=== PATIENT | female | born 1960 | race Caucasian/White ===

== ENCOUNTER 2021-10-04 13:22 | Inpatient (IN) | payer MEDICARE, OTHER ==
[~2021-10-04] VITALS: Ht 165.1 cm; Wt 82.0 kg
[2021-10-04 15:31] LABS: Albumin 3.1 g/dL (3.4-5.0); Calcium 8.6 mg/dL (8.5-10.1); Magnesium 2.1 mg/dL (1.6-2.6); Potassium 4.1 mmol/L (3.5-5.1)
[2021-10-04 15:33] LABS: Basophils # (auto) 0.1 10 ^3/uL (0-0.2); Basophils % (auto) 0.9 % (0.0-2.0); Eosinophils # (auto) 0.1 10 ^3/uL (0-0.8); Eosinophils % (auto) 0.7 % (0.0-7.0); Hematocrit 34.4 % (36.0-46.0); Lymphocytes # (auto) 1.6 10 ^3/uL (0.4-5.4); Lymphocytes % (auto) 16.6 % (10.0-50.0); Mean Corpuscular Hemoglobin 30.6 pg (28.0-32.0); Mean Corpuscular Hgb Conc. 34.8 g/dL (32.0-36.0); Monocytes # (auto) 0.4 10 ^3/uL (0-1.3); Monocytes % (auto) 4.4 % (0.0-12.0); Neutrophils # (auto) 7.5 10 ^3/uL (1.6-8.6); Neutrophils % (auto) 77.4 % (37.0-80.0); Red Blood Cells 3.91 10^6/uL (4.0-5.20); Red Cell Distribution Width 15.2 % (11.8-14.3); White Blood Cell 9.7 10^3/uL (4.4-10.8)
[2021-10-04 15:39] LABS: BUN/Creatinine Ratio 19.1; Bilirubin, Total 0.6 mg/dL (0.2-1.0); Total Protein 7.1 g/dL (6.4-8.2)
[2021-10-04] MEDS ORDERED: ENOXAPARIN SOD 100 MG/1 ML SYRINGE SC ONE (16:00)
[2021-10-04] MEDS ORDERED: NITROGLYCERIN 0.4 MG SL TAB SL PRN (16:00)
[2021-10-04] MEDS ORDERED: MORPHINE SULFATE INJECTION 2 MG/ML SYRG IV PRN ×2 (16:00→21:00)
[2021-10-04] MEDS ORDERED: FUROSEMIDE 40 MG/4 ML VIAL IV ONE (16:00)
[2021-10-04] MEDS ORDERED: IOHEXOL 350 MG/ML 100ML IJ ONE (16:22)
[2021-10-04 18:07] LABS: Urine Bacteria FEW /hpf (None Seen); Urine Blood Negative /uL (Negative); Urine Mucus FEW (None Seen); Urine Specific Gravity 1.019 (1.001-1.035); Urine WBC 10 /hpf (0 - 5)
[2021-10-04] MEDS ORDERED: FLEC100T PO (19:04)
[2021-10-04] MEDS ORDERED: SERT50TA19 PO (19:04)
[2021-10-04] MEDS ORDERED: HYDR-4798 PO (19:04)
[2021-10-04] MEDS ORDERED: METO1TAB9 PO (19:04)
[2021-10-04] MEDS ORDERED: RANO500T PO (19:04)
[2021-10-04] MEDS ORDERED: DESO1TAB17 PO (19:04)
[2021-10-04] MEDS ORDERED: APIX5TAB PO (19:04)
[2021-10-04] MEDS ORDERED: ATOR10TA52 PO (19:04)
[2021-10-04] MEDS ORDERED: LORazepam 0.5 MG TAB PO PRN (20:45)
[2021-10-04] MEDS ORDERED: ALPRAZolam 0.5 MG TAB PO PRN (20:45)
[2021-10-04] MEDS ORDERED: IPRATROPIUM BROM 0.5 MG/2.5ML INH SOL ONE (20:59)
[2021-10-04] MEDS ORDERED: PANTOPRAZOLE 40 MG/10 ML VIAL INJ IV ONE (21:00)
[2021-10-04] MEDS ORDERED: DOCUSATE SOD 100 MG CAP PO PRN (21:00)
[2021-10-04] MEDS ORDERED: HYDROcodone-ACET 5/325MG TAB PO ONE (21:00)
[2021-10-04] MEDS ORDERED: BUMETANIDE 2.5mg/10ml (0.25 mg/ml) INJ IV ONE (21:00)
[2021-10-04] MEDS ORDERED: hydrALAZINE HCL 20 MG/ML VL IV PRN (21:00)
[2021-10-04] MEDS ORDERED: METOPROLOL SUCCINATE XL 50 MG TAB PO ONE (21:00)
[2021-10-04] MEDS ORDERED: SUCRALFATE 1 GM/10 ML ORAL SUSP PO ONE (21:00)
[2021-10-04] MEDS ORDERED: METOCLOPRAMIDE HCL 5MG/ml INJ 2ml VIAL IV PRN (21:00)
[2021-10-04] MEDS ORDERED: MULTIPLE VITAMINS W/ MINERALS TAB PO ONE (21:00)
[2021-10-04] MEDS ORDERED: LACTULOSE 20Gm/30ML SOLN PO PRN (21:00)
[2021-10-04] MEDS ORDERED: IPRATROPIUM BROM 0.5 MG/2.5ML INH SOL NEB ONE ×2 (21:00)
[2021-10-04 21:25] LABS: Magnesium 2.2 mg/dL (1.6-2.6); Phosphorus 3.1 mg/dL (2.5-4.90)
[2021-10-04] MEDS ORDERED: cefTRIAXone 1GM/50ML D5W 50 ML IV ONE (21:30)
[2021-10-04] MEDS ORDERED: ISOSORBIDE MONONITRATE ER 60 MG TAB PO ONE (21:45)
[2021-10-04] MEDS: IPRATROPIUM BROM 0.5 MG/2.5ML INH SOL NEB SCH (22:00)
[2021-10-04] MEDS ORDERED: DOXYCYCLINE 100MG/250ML 250 ML IV ONE (22:30)
[2021-10-04] MEDS: ACETAMINOPHEN 325 MG TAB PO PRN (22:36)
[2021-10-04] MEDS: RANOLAZINE ER 500 MG TAB PO SCH (22:37)
[2021-10-04] MEDS: FLECAINIDE ACETATE 50 MG TAB PO SCH (22:38)
[2021-10-04] MEDS: APIXABAN 5 MG TAB PO SCH (22:39)
[2021-10-04] MEDS: ATORVASTATIN 20 MG TAB PO SCH (22:39)
[2021-10-04] MEDS: SUCRALFATE 1 GM/10 ML ORAL SUSP PO SCH (22:45)
[2021-10-04 23:36] VITALS: BP 146/65
[2021-10-05 01:17] VITALS: BP 146/65
[2021-10-05] MEDS: IPRATROPIUM BROM 0.5 MG/2.5ML INH SOL NEB SCH ×6 (02:00→22:00)
[2021-10-05 02:23] LABS: INR 1.18 (0.9-1.15); Partial Thromboplastin Time 33.6 sec (23.6-33.0)
[2021-10-05 05:00] VITALS: BP 91/54
[2021-10-05] MEDS: BUMETANIDE 2.5mg/10ml (0.25 mg/ml) INJ IV SCH ×2 (05:48→17:30)
[2021-10-05] MEDS: SUCRALFATE 1 GM/10 ML ORAL SUSP PO SCH ×4 (06:28→21:45)
[2021-10-05 07:01] LABS: Basophils # (auto) 0 10 ^3/uL (0-0.2); Basophils % (auto) 0.2 % (0.0-2.0); Eosinophils # (auto) 0.1 10 ^3/uL (0-0.8); Eosinophils % (auto) 0.7 % (0.0-7.0); Hematocrit 32.8 % (36.0-46.0); Hemoglobin 11.2 g/dL (12.2-16.2); Lymphocytes # (auto) 2.1 10 ^3/uL (0.4-5.4); Lymphocytes % (auto) 25.5 % (10.0-50.0); Mean Corpuscular Hemoglobin 30.4 pg (28.0-32.0); Mean Corpuscular Hgb Conc. 34.1 g/dL (32.0-36.0); Mean Corpuscular Volume 89.1 fL (80.0-100.0); Monocytes # (auto) 0.6 10 ^3/uL (0-1.3); Monocytes % (auto) 7.1 % (0.0-12.0); Neutrophils # (auto) 5.5 10 ^3/uL (1.6-8.6); Neutrophils % (auto) 66.5 % (37.0-80.0); Red Blood Cells 3.68 10^6/uL (4.0-5.20); White Blood Cell 8.2 10^3/uL (4.4-10.8)
[2021-10-05 07:38] LABS: Potassium 3.3 mmol/L (3.5-5.1)
[2021-10-05 07:46] LABS: INR 1.16 (0.9-1.15); Partial Thromboplastin Time 34.8 sec (23.6-33.0)
[2021-10-05 08:13] LABS: Albumin 2.9 g/dL (3.4-5.0); BUN/Creatinine Ratio 18.1; Bilirubin, Total 0.6 mg/dL (0.2-1.0); CRP High Sensitivity 9.82 mg/dL (< 0.3); Calcium 8.4 mg/dL (8.5-10.1); Magnesium 2.3 mg/dL (1.6-2.6); Phosphorus 3.9 mg/dL (2.5-4.90); Total Protein 6.9 g/dL (6.4-8.2)
[2021-10-05 09:00] VITALS: BP 126/48
[2021-10-05] MEDS: ASPirin 81 mg TAB PO SCH (09:28)
[2021-10-05] MEDS: PANTOPRAZOLE 40 MG/10 ML VIAL INJ IV SCH (09:28)
[2021-10-05] MEDS: APIXABAN 5 MG TAB PO SCH ×2 (09:28→21:46)
[2021-10-05] MEDS: cefTRIAXone 1GM/50ML D5W 50 ML IV SCH (09:28)
[2021-10-05] MEDS: MULTIPLE VITAMINS W/ MINERALS TAB PO SCH (09:29)
[2021-10-05] MEDS: METOPROLOL SUCCINATE XL 50 MG TAB PO SCH (09:29)
[2021-10-05] MEDS: RANOLAZINE ER 500 MG TAB PO SCH ×2 (09:29→21:44)
[2021-10-05] MEDS: ISOSORBIDE MONONITRATE 20 MG TAB PO SCH ×2 (09:29→22:00)
[2021-10-05] MEDS: FLECAINIDE ACETATE 50 MG TAB PO SCH ×2 (09:29→21:45)
[2021-10-05] MEDS: SERTRALINE HCL 50 MG TAB PO SCH (09:30)
[2021-10-05] MEDS: CHOLECALCIFEROL (VITD3) 2,000 UNIT CAP/TAB PO SCH (09:30)
[2021-10-05] MEDS: CYANOCOBALAMIN 500 MCG TAB PO SCH (09:30)
[2021-10-05] MEDS ORDERED: METO1TAB9 PO (10:09)
[2021-10-05] MEDS: DOXYCYCLINE 100MG/250ML 250 ML IV SCH ×2 (10:45→21:45)
[2021-10-05 13:00] VITALS: BP 90/54
[2021-10-05 17:00] VITALS: BP 115/68
[2021-10-05] MEDS: ACETAMINOPHEN 325 MG TAB PO PRN (17:31)
[2021-10-05] MEDS: HYDROcodone-ACET 5/325MG TAB PO PRN (20:22)
[2021-10-05] MEDS: ATORVASTATIN 20 MG TAB PO SCH (21:45)
[2021-10-05 22:00] VITALS: BP 98/65
[2021-10-06 01:32] LABS: Alcohol, Urine < 3.0 mg/dL (0-10); Amphetamine Screen, Urine NEGATIVE (NEGATIVE); Barbiturate Scree,Urine NEGATIVE (NEGATIVE); Benzodiazephine Screen, Urine POSITIVE (NEGATIVE); Cannabinoid Screen, Urine NEGATIVE (NEGATIVE); Cocaine Screen, Urine NEGATIVE (NEGATIVE); Opiate Scree,Urine NEGATIVE (NEGATIVE); Phencyclidine Screen, Urine NEGATIVE (NEGATIVE)
[2021-10-06] MEDS: IPRATROPIUM BROM 0.5 MG/2.5ML INH SOL NEB SCH ×5 (02:00→19:36)
[2021-10-06 05:00] VITALS: BP 90/56
[2021-10-06] MEDS: BUMETANIDE 2.5mg/10ml (0.25 mg/ml) INJ IV SCH ×2 (06:00→17:35)
[2021-10-06] MEDS: SUCRALFATE 1 GM/10 ML ORAL SUSP PO SCH ×4 (06:28→22:21)
[2021-10-06 06:37] VITALS: BP 97/60
[2021-10-06 08:36] VITALS: BP 98/69
[2021-10-06] MEDS: cefTRIAXone 1GM/50ML D5W 50 ML IV SCH (10:08)
[2021-10-06] MEDS: CYANOCOBALAMIN 500 MCG TAB PO SCH (10:29)
[2021-10-06] MEDS: APIXABAN 5 MG TAB PO SCH (10:29)
[2021-10-06] MEDS: CHOLECALCIFEROL (VITD3) 2,000 UNIT CAP/TAB PO SCH (10:29)
[2021-10-06] MEDS: RANOLAZINE ER 500 MG TAB PO SCH ×2 (10:30→22:21)
[2021-10-06] MEDS: FLECAINIDE ACETATE 50 MG TAB PO SCH ×2 (10:30→22:23)
[2021-10-06] MEDS: ASPirin 81 mg TAB PO SCH (10:30)
[2021-10-06] MEDS: SERTRALINE HCL 50 MG TAB PO SCH (10:31)
[2021-10-06] MEDS: MULTIPLE VITAMINS W/ MINERALS TAB PO SCH (10:31)
[2021-10-06] MEDS: PANTOPRAZOLE 40 MG/10 ML VIAL INJ IV SCH (10:36)
[2021-10-06] MEDS: DOXYCYCLINE 100MG/250ML 250 ML IV SCH ×2 (10:36→22:21)
[2021-10-06] MEDS: METOPROLOL SUCCINATE XL 50 MG TAB PO SCH (10:38)
[2021-10-06] MEDS: ISOSORBIDE MONONITRATE 20 MG TAB PO SCH ×2 (10:38→22:00)
[2021-10-06] MEDS: ENOXAPARIN SOD 80 MG/0.8ML SYRINGE SC SCH ×2 (11:40→22:22)
[2021-10-06] MEDS: LORazepam 0.5 MG TAB PO PRN ×2 (11:40→22:18)
[2021-10-06 13:00] VITALS: BP 111/66
[2021-10-06 16:49] VITALS: BP 108/66
[2021-10-06 22:00] VITALS: BP 111/73
[2021-10-06] MEDS: ATORVASTATIN 20 MG TAB PO SCH (22:21)
[2021-10-07] MEDS: IPRATROPIUM BROM 0.5 MG/2.5ML INH SOL NEB SCH ×7 (00:08→22:00)
[2021-10-07 05:00] VITALS: BP 94/56
[2021-10-07] MEDS: BUMETANIDE 2.5mg/10ml (0.25 mg/ml) INJ IV SCH ×2 (06:00→16:55)
[2021-10-07] MEDS: SUCRALFATE 1 GM/10 ML ORAL SUSP PO SCH ×4 (06:33→21:51)
[2021-10-07] MEDS: ISOSORBIDE MONONITRATE 20 MG TAB PO SCH ×2 (08:38→22:00)
[2021-10-07] MEDS: METOPROLOL SUCCINATE XL 50 MG TAB PO SCH (08:39)
[2021-10-07] MEDS: MULTIPLE VITAMINS W/ MINERALS TAB PO SCH (08:57)
[2021-10-07] MEDS: FLECAINIDE ACETATE 50 MG TAB PO SCH ×2 (08:57→21:51)
[2021-10-07] MEDS: CHOLECALCIFEROL (VITD3) 2,000 UNIT CAP/TAB PO SCH (08:58)
[2021-10-07] MEDS: CYANOCOBALAMIN 500 MCG TAB PO SCH (08:58)
[2021-10-07] MEDS: RANOLAZINE ER 500 MG TAB PO SCH ×2 (08:58→21:52)
[2021-10-07] MEDS: ENOXAPARIN SOD 80 MG/0.8ML SYRINGE SC SCH ×2 (08:59→21:51)
[2021-10-07] MEDS: PANTOPRAZOLE 40 MG/10 ML VIAL INJ IV SCH (08:59)
[2021-10-07] MEDS: cefTRIAXone 1GM/50ML D5W 50 ML IV SCH (08:59)
[2021-10-07] MEDS: ASPirin 81 mg TAB PO SCH (08:59)
[2021-10-07] MEDS: SERTRALINE HCL 50 MG TAB PO SCH (08:59)
[2021-10-07 09:00] VITALS: BP 95/60
[2021-10-07] MEDS: LORazepam 0.5 MG TAB PO PRN ×2 (09:14→20:01)
[2021-10-07] MEDS: DOXYCYCLINE 100MG/250ML 250 ML IV SCH ×2 (10:15→21:50)
[2021-10-07 13:00] VITALS: BP 90/57
[2021-10-07 14:41] LABS: Basophils # (auto) 0 10 ^3/uL (0-0.2); Basophils % (auto) 0.5 % (0.0-2.0); Eosinophils # (auto) 0.1 10 ^3/uL (0-0.8); Eosinophils % (auto) 1.3 % (0.0-7.0); Hematocrit 33.7 % (36.0-46.0); Hemoglobin 11.5 g/dL (12.2-16.2); Lymphocytes # (auto) 1.2 10 ^3/uL (0.4-5.4); Mean Corpuscular Hemoglobin 30.1 pg (28.0-32.0); Mean Corpuscular Hgb Conc. 34.2 g/dL (32.0-36.0); Mean Corpuscular Volume 87.9 fL (80.0-100.0); Monocytes # (auto) 0.4 10 ^3/uL (0-1.3); Monocytes % (auto) 4.9 % (0.0-12.0); Neutrophils # (auto) 6.9 10 ^3/uL (1.6-8.6); Neutrophils % (auto) 79.3 % (37.0-80.0); Nucleated Red Blood Cells % 0.1 %; Red Blood Cells 3.84 10^6/uL (4.0-5.20); Red Cell Distribution Width 14.9 % (11.8-14.3); White Blood Cell 8.7 10^3/uL (4.4-10.8)
[2021-10-07 14:42] LABS: Albumin 2.9 g/dL (3.4-5.0); BUN/Creatinine Ratio 15.3; Calcium 8.9 mg/dL (8.5-10.1)
[2021-10-07 14:47] LABS: Bilirubin, Total 0.5 mg/dL (0.2-1.0); Total Protein 7.7 g/dL (6.4-8.2)
[2021-10-07 16:50] VITALS: BP 106/63
[2021-10-07] MEDS ORDERED: POTASSIUM CHL 20 Meq TABLET PO ONE (19:45)
[2021-10-07] MEDS: ACETAMINOPHEN 325 MG TAB PO PRN (20:25)
[2021-10-07] MEDS: ATORVASTATIN 20 MG TAB PO SCH (21:52)
[2021-10-07 22:00] VITALS: BP 103/62
[2021-10-08] VITALS (9 sets, daily range): BP systolic 82–139; BP diastolic 45–67
[2021-10-08] MEDS: IPRATROPIUM BROM 0.5 MG/2.5ML INH SOL NEB SCH ×5 (02:00→21:20)
[2021-10-08] MEDS: BUMETANIDE 2.5mg/10ml (0.25 mg/ml) INJ IV SCH ×2 (06:00→17:43)
[2021-10-08] MEDS: SUCRALFATE 1 GM/10 ML ORAL SUSP PO SCH ×4 (06:36→23:02)
[2021-10-08] MEDS: ISOSORBIDE MONONITRATE 20 MG TAB PO SCH ×2 (07:36→23:03)
[2021-10-08] MEDS: METOPROLOL SUCCINATE XL 50 MG TAB PO SCH (07:37)
[2021-10-08] MEDS: PANTOPRAZOLE 40 MG/10 ML VIAL INJ IV SCH (08:18)
[2021-10-08] MEDS: cefTRIAXone 1GM/50ML D5W 50 ML IV SCH (08:19)
[2021-10-08 08:22] LABS: Potassium 3.5 mmol/L (3.5-5.1)
[2021-10-08] MEDS: SERTRALINE HCL 50 MG TAB PO SCH (08:25)
[2021-10-08] MEDS: CHOLECALCIFEROL (VITD3) 2,000 UNIT CAP/TAB PO SCH (08:25)
[2021-10-08] MEDS: CYANOCOBALAMIN 500 MCG TAB PO SCH (08:25)
[2021-10-08 08:26] LABS: BUN/Creatinine Ratio 14.9
[2021-10-08] MEDS: FLECAINIDE ACETATE 50 MG TAB PO SCH ×2 (08:26→23:00)
[2021-10-08] MEDS: RANOLAZINE ER 500 MG TAB PO SCH ×2 (08:26→23:03)
[2021-10-08] MEDS: MULTIPLE VITAMINS W/ MINERALS TAB PO SCH (08:26)
[2021-10-08] MEDS: ASPirin 81 mg TAB PO SCH (08:26)
[2021-10-08] MEDS: ENOXAPARIN SOD 80 MG/0.8ML SYRINGE SC SCH ×2 (08:26→23:04)
[2021-10-08] MEDS: DOXYCYCLINE 100MG/250ML 250 ML IV SCH ×2 (09:02→23:01)
[2021-10-08] MEDS: LORazepam 0.5 MG TAB PO PRN ×2 (09:02→23:05)
[2021-10-08] MEDS: ATORVASTATIN 20 MG TAB PO SCH (23:03)
[2021-10-09] MEDS: IPRATROPIUM BROM 0.5 MG/2.5ML INH SOL NEB SCH ×6 (02:00→21:12)
[2021-10-09 05:00] VITALS: BP 104/55
[2021-10-09] MEDS: BUMETANIDE 2.5mg/10ml (0.25 mg/ml) INJ IV SCH ×2 (06:02→17:46)
[2021-10-09] MEDS: SUCRALFATE 1 GM/10 ML ORAL SUSP PO SCH ×4 (06:04→22:00)
[2021-10-09 08:00] VITALS: BP 82/50
[2021-10-09] MEDS: ASPirin 81 mg TAB PO SCH (08:50)
[2021-10-09] MEDS: CHOLECALCIFEROL (VITD3) 2,000 UNIT CAP/TAB PO SCH (08:50)
[2021-10-09] MEDS: SERTRALINE HCL 50 MG TAB PO SCH (08:50)
[2021-10-09] MEDS: MULTIPLE VITAMINS W/ MINERALS TAB PO SCH (08:50)
[2021-10-09] MEDS: CYANOCOBALAMIN 500 MCG TAB PO SCH (08:50)
[2021-10-09] MEDS: ENOXAPARIN SOD 80 MG/0.8ML SYRINGE SC SCH ×2 (08:51→23:00)
[2021-10-09] MEDS: PANTOPRAZOLE 40 MG/10 ML VIAL INJ IV SCH (08:51)
[2021-10-09] MEDS: DOXYCYCLINE 100MG/250ML 250 ML IV SCH ×2 (08:51→23:00)
[2021-10-09] MEDS: cefTRIAXone 1GM/50ML D5W 50 ML IV SCH (08:51)
[2021-10-09] MEDS: METOPROLOL SUCCINATE XL 50 MG TAB PO SCH (09:19)
[2021-10-09] MEDS: ISOSORBIDE MONONITRATE 20 MG TAB PO SCH ×2 (09:19→23:00)
[2021-10-09] MEDS: FLECAINIDE ACETATE 50 MG TAB PO SCH ×2 (09:19→23:00)
[2021-10-09] MEDS: RANOLAZINE ER 500 MG TAB PO SCH ×2 (09:19→23:50)
[2021-10-09 12:00] VITALS: BP 90/59
[2021-10-09 16:00] VITALS: BP 86/55
[2021-10-09 22:00] VITALS: BP 95/60
[2021-10-09] MEDS: ATORVASTATIN 20 MG TAB PO SCH (23:00)
[2021-10-10] MEDS: LORazepam 0.5 MG TAB PO PRN (00:47)
[2021-10-10] MEDS: IPRATROPIUM BROM 0.5 MG/2.5ML INH SOL NEB SCH ×8 (02:00→22:09)
[2021-10-10 05:00] VITALS: BP 97/60
[2021-10-10] MEDS: BUMETANIDE 2.5mg/10ml (0.25 mg/ml) INJ IV SCH ×2 (06:00→18:00)
[2021-10-10] MEDS: SUCRALFATE 1 GM/10 ML ORAL SUSP PO SCH ×4 (06:13→22:47)
[2021-10-10 08:00] VITALS: BP 102/67
[2021-10-10] MEDS: ISOSORBIDE MONONITRATE 20 MG TAB PO SCH ×2 (10:00→22:50)
[2021-10-10] MEDS: METOPROLOL SUCCINATE XL 50 MG TAB PO SCH (10:00)
[2021-10-10] MEDS: FLECAINIDE ACETATE 50 MG TAB PO SCH ×2 (10:00→22:50)
[2021-10-10] MEDS: RANOLAZINE ER 500 MG TAB PO SCH ×2 (10:00→23:08)
[2021-10-10] MEDS: DOXYCYCLINE 100MG/250ML 250 ML IV SCH ×2 (10:36→22:47)
[2021-10-10] MEDS: cefTRIAXone 1GM/50ML D5W 50 ML IV SCH (10:36)
[2021-10-10] MEDS: PANTOPRAZOLE 40 MG/10 ML VIAL INJ IV SCH (10:36)
[2021-10-10] MEDS: MULTIPLE VITAMINS W/ MINERALS TAB PO SCH (10:37)
[2021-10-10] MEDS: CYANOCOBALAMIN 500 MCG TAB PO SCH (10:37)
[2021-10-10] MEDS: SERTRALINE HCL 50 MG TAB PO SCH (10:37)
[2021-10-10] MEDS: CHOLECALCIFEROL (VITD3) 2,000 UNIT CAP/TAB PO SCH (10:37)
[2021-10-10] MEDS: ASPirin 81 mg TAB PO SCH (10:37)
[2021-10-10] MEDS: ENOXAPARIN SOD 80 MG/0.8ML SYRINGE SC SCH ×2 (10:38→22:47)
[2021-10-10 12:00] VITALS: BP 106/61
[2021-10-10 16:00] VITALS: BP 90/54
[2021-10-10 22:00] VITALS: BP 112/69
[2021-10-10] MEDS: ATORVASTATIN 20 MG TAB PO SCH (22:47)
[2021-10-10 23:58] VITALS: BP 112/69
[2021-10-11] MEDS: HYDROcodone-ACET 5/325MG TAB PO PRN ×3 (01:47→22:25)
[2021-10-11] MEDS: IPRATROPIUM BROM 0.5 MG/2.5ML INH SOL NEB SCH ×6 (02:00→22:45)
[2021-10-11 05:00] VITALS: BP 110/69
[2021-10-11] MEDS: BUMETANIDE 2.5mg/10ml (0.25 mg/ml) INJ IV SCH ×2 (07:00→18:00)
[2021-10-11 09:00] VITALS: BP 88/52
[2021-10-11] MEDS: METOPROLOL SUCCINATE XL 50 MG TAB PO SCH (09:05)
[2021-10-11] MEDS: ISOSORBIDE MONONITRATE 20 MG TAB PO SCH ×2 (09:06→22:00)
[2021-10-11] MEDS: SUCRALFATE 1 GM/10 ML ORAL SUSP PO SCH ×4 (09:57→22:24)
[2021-10-11] MEDS: cefTRIAXone 1GM/50ML D5W 50 ML IV SCH (09:57)
[2021-10-11] MEDS: ASPirin 81 mg TAB PO SCH (09:58)
[2021-10-11] MEDS: DOXYCYCLINE 100MG/250ML 250 ML IV SCH ×2 (09:58→22:24)
[2021-10-11] MEDS: PANTOPRAZOLE 40 MG/10 ML VIAL INJ IV SCH (09:58)
[2021-10-11] MEDS: FLECAINIDE ACETATE 50 MG TAB PO SCH ×2 (10:00→22:29)
[2021-10-11] MEDS: RANOLAZINE ER 500 MG TAB PO SCH ×2 (10:00→22:29)
[2021-10-11] MEDS: MULTIPLE VITAMINS W/ MINERALS TAB PO SCH (10:00)
[2021-10-11] MEDS: CYANOCOBALAMIN 500 MCG TAB PO SCH (10:03)
[2021-10-11] MEDS: SERTRALINE HCL 50 MG TAB PO SCH (10:03)
[2021-10-11] MEDS: CHOLECALCIFEROL (VITD3) 2,000 UNIT CAP/TAB PO SCH (10:03)
[2021-10-11] MEDS: ENOXAPARIN SOD 80 MG/0.8ML SYRINGE SC SCH ×2 (10:03→22:24)
[2021-10-11 12:41] VITALS: BP 107/64
[2021-10-11 16:46] VITALS: BP 90/52
[2021-10-11 21:17] VITALS: BP 98/58
[2021-10-11] MEDS: ATORVASTATIN 20 MG TAB PO SCH (22:24)
[2021-10-11] MEDS: LORazepam 0.5 MG TAB PO PRN (22:25)
[2021-10-12] MEDS: IPRATROPIUM BROM 0.5 MG/2.5ML INH SOL NEB SCH ×6 (02:00→23:05)
[2021-10-12 05:00] VITALS: BP_SYST 76; BP_SYST 98; BP_DIAS 40; BP_DIAS 60
[2021-10-12] MEDS: BUMETANIDE 2.5mg/10ml (0.25 mg/ml) INJ IV SCH ×2 (06:00→18:00)
[2021-10-12 08:57] VITALS: BP 97/62
[2021-10-12] MEDS: ISOSORBIDE MONONITRATE 20 MG TAB PO SCH ×2 (10:00→22:22)
[2021-10-12] MEDS: SUCRALFATE 1 GM/10 ML ORAL SUSP PO SCH ×4 (10:00→22:22)
[2021-10-12] MEDS: METOPROLOL SUCCINATE XL 50 MG TAB PO SCH (10:00)
[2021-10-12] MEDS: ASPirin 81 mg TAB PO SCH (10:52)
[2021-10-12] MEDS: RANOLAZINE ER 500 MG TAB PO SCH ×2 (10:52→22:23)
[2021-10-12] MEDS: MULTIPLE VITAMINS W/ MINERALS TAB PO SCH (10:52)
[2021-10-12] MEDS: PANTOPRAZOLE 40 MG/10 ML VIAL INJ IV SCH (10:52)
[2021-10-12] MEDS: ENOXAPARIN SOD 80 MG/0.8ML SYRINGE SC SCH ×2 (10:53→22:24)
[2021-10-12] MEDS: CYANOCOBALAMIN 500 MCG TAB PO SCH (10:53)
[2021-10-12] MEDS: CHOLECALCIFEROL (VITD3) 2,000 UNIT CAP/TAB PO SCH (10:53)
[2021-10-12] MEDS: SERTRALINE HCL 50 MG TAB PO SCH (10:53)
[2021-10-12] MEDS: FLECAINIDE ACETATE 50 MG TAB PO SCH ×2 (10:53→22:23)
[2021-10-12 13:00] VITALS: BP 95/59
[2021-10-12 17:00] VITALS: BP 100/60
[2021-10-12 22:00] VITALS: BP 108/63
[2021-10-12] MEDS: ATORVASTATIN 20 MG TAB PO SCH (22:23)
[2021-10-12] MEDS: LORazepam 0.5 MG TAB PO PRN (23:28)
[2021-10-13] MEDS: IPRATROPIUM BROM 0.5 MG/2.5ML INH SOL NEB SCH ×4 (00:29→14:52)
[2021-10-13 05:00] VITALS: BP 86/57
[2021-10-13] MEDS: BUMETANIDE 2.5mg/10ml (0.25 mg/ml) INJ IV SCH (05:47)
[2021-10-13] MEDS: SUCRALFATE 1 GM/10 ML ORAL SUSP PO SCH ×2 (06:30→11:30)
[2021-10-13 09:00] VITALS: BP 92/55
[2021-10-13] MEDS: PANTOPRAZOLE 40 MG/10 ML VIAL INJ IV SCH (09:22)
[2021-10-13] MEDS: ASPirin 81 mg TAB PO SCH (09:22)
[2021-10-13] MEDS: MULTIPLE VITAMINS W/ MINERALS TAB PO SCH (09:24)
[2021-10-13] MEDS: FLECAINIDE ACETATE 50 MG TAB PO SCH (09:25)
[2021-10-13] MEDS: RANOLAZINE ER 500 MG TAB PO SCH (09:25)
[2021-10-13] MEDS: CYANOCOBALAMIN 500 MCG TAB PO SCH (09:26)
[2021-10-13] MEDS: CHOLECALCIFEROL (VITD3) 2,000 UNIT CAP/TAB PO SCH (09:27)
[2021-10-13] MEDS: SERTRALINE HCL 50 MG TAB PO SCH (09:27)
[2021-10-13] MEDS: ENOXAPARIN SOD 80 MG/0.8ML SYRINGE SC SCH (09:27)
[2021-10-13] MEDS: ISOSORBIDE MONONITRATE 20 MG TAB PO SCH (10:00)
[2021-10-13] MEDS: METOPROLOL SUCCINATE XL 50 MG TAB PO SCH (10:00)
[2021-10-13 13:00] VITALS: BP 104/70
[2021-10-13 15:26] VITALS: BP 101/68
[2021-10-13] MEDS: LORazepam 0.5 MG TAB PO PRN (15:30)
== END 2021-10-13 17:05 | disposition home health service (06) | DRG 871 ==
LOC: EDBD 13:22 → ER 13:22 → TELE 15:52 → TELE-CENTR 18:37
PROVIDERS: ADMIT Hospitalist; ATTEND Family Medicine
DX: A41.9 Sepsis, unspecified organism (principal); I50.33 Acute on chronic diastolic (congestive) heart failure; J96.01 Acute respiratory failure with hypoxia; I21.4 Non-ST elevation (NSTEMI) myocardial infarction; J15.5 Pneumonia due to Escherichia coli; J15.6 Pneumonia due to other Gram-negative bacteria; N39.0 Urinary tract infection, site not specified; I48.19 Other persistent atrial fibrillation; J98.11 Atelectasis; F41.0 Panic disorder [episodic paroxysmal anxiety]; F32.9 Major depressive disorder, single episode, unspecified; I25.5 Ischemic cardiomyopathy; D64.9 Anemia, unspecified; E66.9 Obesity, unspecified; K29.70 Gastritis, unspecified, without bleeding; K75.81 Nonalcoholic steatohepatitis (NASH); K21.9 Gastro-esophageal reflux disease without esophagitis; Z20.822 Contact with and (suspected) exposure to COVID-19; I25.10 Atherosclerotic heart disease of native coronary artery without angina pectoris; E78.5 Hyperlipidemia, unspecified; I11.0 Hypertensive heart disease with heart failure; I25.2 Old myocardial infarction; Z68.30 Body mass index [BMI] 30.0-30.9, adult; Z79.01 Long term (current) use of anticoagulants; Z79.899 Other long term (current) drug therapy; Z82.49 Family history of ischemic heart disease and other diseases of the circulatory system; Z86.718 Personal history of other venous thrombosis and embolism; Z87.891 Personal history of nicotine dependence
CPT/HCPCS: 36415; 36600; 71045; 71046; 71275; 80048; 80053; 80061; 80307; 81001; 82550; 82728; 82805; 83036; 83615; 83690; 83735; 83880; 84100; 84443; 84484; 85025; 85379; 85610; 85652; 85730; 86141; 87040; 87070; 87077; 87081; 87086; 87186; 87205; 93005; 93306; 93925; 93970; 94640; 96372; 96374; C9113; G0378; J0696; J3490

== ENCOUNTER → 2021-11-02 | Outpatient (CLI) | payer MEDICARE, OTHER ==
[~2021-11-02] MED LIST: APIX5TAB PO; ATOR10TA52 PO; DESO1TAB17 PO; FLEC100T PO; METO1TAB9 PO; RANO500T PO; SERT50TA19 PO
== END | disposition home or self-care (01) ==
LOC: RT 10:52
PROVIDERS: ATTEND Internal Medicine Pulmonary Disease
DX: J96.91 Respiratory failure, unspecified with hypoxia (principal); R06.02 Shortness of breath
CPT/HCPCS: 94618

== ENCOUNTER → 2022-10-10 | Outpatient (CLI) | payer MEDICARE, OTHER ==
[2022-10-10 10:18] LABS: Basophils # (auto) 0 10 ^3/uL (0-0.2); Basophils % (auto) 0.5 % (0.0-2.0); Eosinophils # (auto) 0.1 10 ^3/uL (0-0.8); Eosinophils % (auto) 1.6 % (0.0-7.0); Hemoglobin 14.7 g/dL (12.2-16.2); Lymphocytes # (auto) 1.7 10 ^3/uL (0.4-5.4); Lymphocytes % (auto) 24.9 % (10.0-50.0); Mean Corpuscular Hemoglobin 29.7 pg (28.0-32.0); Mean Corpuscular Hgb Conc. 34.2 g/dL (32.0-36.0); Mean Corpuscular Volume 86.9 fL (80.0-100.0); Monocytes # (auto) 0.4 10 ^3/uL (0-1.3); Monocytes % (auto) 5.9 % (0.0-12.0); Neutrophils # (auto) 4.6 10 ^3/uL (1.6-8.6); Neutrophils % (auto) 67.1 % (37.0-80.0); Nucleated Red Blood Cells % 0.1 %; Red Blood Cells 4.95 10^6/uL (4.0-5.20); White Blood Cell 6.9 10^3/uL (4.4-10.8)
[2022-10-10 11:25] LABS: Urine Bacteria FEW /hpf (None Seen); Urine Blood TRACE /uL (Negative); Urine Mucus FEW (None Seen); Urine Specific Gravity 1.033 (1.001-1.035); Urine WBC 22 /hpf (0 - 5)
[2022-10-10 11:29] LABS: Albumin 3.6 g/dL (3.4-5.0); BUN/Creatinine Ratio 11.1 (10.0-20.0); Bilirubin, Total 0.4 mg/dL (0.2-1.0); Calcium 9.1 mg/dL (8.5-10.1); Total Protein 8.1 g/dL (6.4-8.2)
== END | disposition home or self-care (01) ==
LOC: LAB 09:45
PROVIDERS: ATTEND Student in an Organized Health Care Education/Training Program
DX: Z12.11 Encounter for screening for malignant neoplasm of colon (principal); I10 Essential (primary) hypertension; R73.9 Hyperglycemia, unspecified
CPT/HCPCS: 36415; 80053; 80061; 81001; 83036; 84439; 84443; 85025